=== PATIENT | male | born 1965 | race American Indian/Alaskan Native ===

== ENCOUNTER 2019-04-06 14:13 | Emergency (ER) | payer MEDICAID ==
--- NOTE | 2019-04-06 14:25 | Emergency Department Report ---
Blank Doc - Documentation Documentation: This is a 54-year-old male that presents with right foot pain. also has dizzi ness after injected a unknown medication from a friend. This initial assessment/diagnostic orders/clinical plan/treatment(s) is/are subject to change based on patient's health status, clinical progression and re- assessment by fellow clinical providers in the ED. Further treatment and workup at subsequent clinical providers discretion. Patient/guardians urged not to elope from the ED as their condition may be serious if not clinically assessed and managed. Initial orders include: 1- Patient sent to [facility] for further evaluation and treatment 2- labs/ua 3- xray
--- NOTE | 2019-04-06 15:21 | XRay Report ---
RIGHT FOOT, 3 VIEWS INDICATION: foot pain. COMPARISON: None. IMPRESSION: Dorsal dislocation at the second metatarsophalangeal joint is identified. There is no obv ious associated fracture. Mild hallux valgus deformity and degenerative changes at the first metatars ophalangeal joint are also noted. The remaining bony structures are intact. Surgical changes at the a nkle with posttraumatic degenerative changes are noted. Signer Name: Jagdish Tay Jr, MD Signed: 04/06/2019 3:16 PM Workstation Name: [id number]
[2019-04-06 17:03] LABS: Basophils % (Auto) 0.5 % (0.0-1.8); Eosinophils % (Auto) 0.8 % (0.0-4.3); Hematocrit 41.2 % (35.5-45.6); Hemoglobin 13.8 gm/dl (11.8-15.2); Lymphocytes # (Auto) 1.3 K/mm3 (1.2-5.4); Lymphocytes % (Auto) 19.8 % (13.4-35.0); Mean Corpuscular HGB Conc 34 % (32-34); Mean Corpuscular Volume 87 fl (84-94); Monocytes # (Auto) 0.6 K/mm3 (0.0-0.8); Monocytes % (Auto) 8.7 % (0.0-7.3); Platelet Count 201 K/mm3 (140-440); Red Blood Count 4.72 M/mm3 (3.65-5.03); Red Cell Distribution Width 13.1 % (13.2-15.2)
--- NOTE | 2019-04-06 17:15 | Emergency Department Report ---
ED General Adult HPI - General Chief complaint: Dizziness Stated complaint: RT FOOT INJURY/WEAKNESS Time Seen by Provider: 04/06/19 14:21 Source: patient Mode of arrival: Ambulatory Limitations: No Limitations - History of Present Illness Initial comments: Patient presents to the emergency department with the chief complaint of right ankle and right foot pain. She states was walking and twisted his ankle. Patient also states that someone gave him a pill to take for the pain which has helped relieve it significantly. Patient denies chest pain, shortness breath, or headache. -: Sudden Location: lower extremity Radiation: non-radiation Severity scale (0 -10): 2 Quality: aching Consistency: constant Improves with: rest Worsens with: movement Associated Symptoms: denies other symptoms Treatments Prior to Arrival: none - Related Data Previous Rx's Medication Instructions Recorded Last Taken Type Ibuprofen [Motrin] 800 mg PO Q8HR PRN #30 tablet 04/06/19 Unknown Rx Allergies Allergy/AdvReac Type Severity Reaction Status Date / Time haloperidol [From Haldol] Allergy Hives Verified 04/06/19 14:20 ED Review of Systems ROS: Stated complaint: RT FOOT INJURY/WEAKNESS Other details as noted in HPI Comment: All other systems reviewed and negative Constitutional: denies: chills, fever Eyes: denies: eye pain, eye discharge, vision change ENT: denies: ear pain, throat pain Respiratory: denies: cough, shortness of breath, wheezing Cardiovascular: denies: chest pain, palpitations Endocrine: no symptoms reported Gastrointestinal: denies: abdominal pain, nausea, diarrhea Genitourinary: denies: urgency, dysuria Musculoskeletal: denies: back pain, joint swelling, arthralgia Skin: denies: rash, lesions Neurological: denies: headache, weakness, paresthesias Psychiatric: denies: anxiety, depression Hematological/Lymphatic: denies: easy bleeding, easy bruising ED Past Medical Hx - Past Medical History Previous Medical History?: Yes - Social History Smoking Status: Unknown if ever smoked Substance Use Type: Other - Medications Home Medications: Home Medications Medication Instructions Recorded Confirmed Last Taken Type Ibuprofen [Motrin] 800 mg PO Q8HR PRN #30 tablet 04/06/19 Unknown Rx ED Physical Exam - General Limitations: No Limitations General appearance: alert, in no apparent distress - Head Head exam: Present: atraumatic, normocephalic - Eye Eye exam: Present: normal appearance, PERRL, EOMI - ENT ENT exam: Present: mucous membranes dry - Neck Neck exam: Present: normal inspection - Respiratory Respiratory exam: Present: normal lung sounds bilaterally. Absent: respiratory distress - Cardiovascular Cardiovascular Exam: Present: regular rate, normal rhythm. Absent: systolic murmur, diastolic murmur, rubs, gallop - GI/Abdominal GI/Abdominal exam: Present: soft, normal bowel sounds - Rectal Rectal exam: Present: deferred - Extremities Exam Extremities exam: Present: normal inspection, other (right ankle is tender to palpation along the lateral malleolus; there is tenderness palpation of distal joint of the first great toe left foot) - Back Exam Back exam: Present: normal inspection - Neurological Exam Neurological exam: Present: alert, oriented X3 - Psychiatric Psychiatric exam: Present: normal affect, normal mood - Skin Skin exam: Present: warm, dry, intact, normal color. Absent: rash ED Course Vital Signs 04/06/19 14:24 Temperature 98.2 F Pulse Rate 117 H Respiratory 20 Rate Blood Pressure 119/84 O2 Sat by Pulse 99 Oximetry ED Medical Decision Making - Lab Data Result diagrams: 04/06/19 16:52 04/06/19 16:51 Lab Results 04/06/19 04/06/19 Range/Units 16:51 16:52 WBC 6.5 (4.5-11.0) K/mm3 RBC 4.72 (3.65-5.03) M/mm3 Hgb 13.8 (11.8-15.2) gm/dl Hct 41.2 (35.5-45.6) % MCV 87 (84-94) fl MCH 29 (28-32) pg MCHC 34 (32-34) % RDW 13.1 L (13.2-15.2) % Plt Count 201 (140-440) K/mm3 Lymph % (Auto) 19.8 (13.4-35.0) % [place] % (Auto) 8.7 H (0.0-7.3) % Eos % (Auto) 0.8 (0.0-4.3) % Baso % (Auto) 0.5 (0.0-1.8) % Lymph # 1.3 (1.2-5.4) K/mm3 [place] # 0.6 (0.0-0.8) K/mm3 Eos # 0.0 (0.0-0.4) K/mm3 Baso # 0.0 (0.0-0.1) K/mm3 Seg Neutrophils % 70.2 H (40.0-70.0) % Seg Neutrophils # 4.5 (1.8-7.7) K/mm3 Sodium 138 (137-145) mmol/L Potassium 3.8 (3.6-5.0) mmol/L Chloride 98.0 (98-107) mmol/L Carbon Dioxide 27 (22-30) mmol/L Anion Gap 17 mmol/L BUN 12 (9-20) mg/dL Creatinine 0.9 (0.8-1.5) mg/dL Estimated GFR > 60 ml/min BUN/Creatinine Ratio 13 % Glucose 115 H (75-100) mg/dL Calcium 8.9 (8.4-10.2) mg/dL Total Bilirubin 0.70 (0.1-1.2) mg/dL AST 223 H (5-40) units/L ALT 113 H (7-56) units/L Alkaline Phosphatase 67 (35-129) units/L Total Protein 7.6 (6.3-8.2) g/dL Albumin 4.0 (3.9-5) g/dL Albumin/Globulin Ratio 1.1 % - Medical Decision Making The patient would not allow me to reduce his dislocated second toe of the right foot Critical care attestation.: If time is entered above; I have spent that time in minutes in the direct care of this critically ill patient, excluding procedure time. ED Disposition Clinical Impression: Ankle pain, right, Toe pain, right Disposition: DC- TO HOME OR SELFCARE Is pt being admited?: No Does the pt Need Aspirin: No Condition: Stable Additional Instructions: return if worse Referrals: PRIMARY CARE, [Primary Care Provider] - 3-5 Days [facility] [Staff Physician] - 3-5 Days [facility] [Provider Group] - 3-5 Days [facility] [Provider Group] - 3-5 Days Time of Disposition: 18:09
--- NOTE | 2019-04-06 17:42 | XRay Report ---
RIGHT ANKLE 2 VIEWS INDICATION / CLINICAL INFORMATION: pain. COMPARISON: None available. FINDINGS: Postop change of venous stripping and ORIF distal fibular fracture. Moderately advanced degenerative change in the tibiotalar joint. No acute fracture or other acute abn ormality. IMPRESSION: Advanced degenerative change in the tibiotalar joint. No acute fracture. Signer Name: Abebe Winkler MD Signed: 04/06/2019 5:37 PM Workstation Name: [id number]
[2019-04-06 18:27] LABS: BUN/Creatinine Ratio TNR; Blood Urea Nitrogen TNR mg/dL (9-20); Calcium TNR mg/dL (8.4-10.2)
[2019-04-06 18:28] LABS: Alanine Aminotransferase TNR units/L (7-56); Albumin TNR g/dL (3.9-5); Hemolysis Index TNR
[2019-04-06 18:43] VITALS: BP 111/72
== END 2019-04-06 19:03 | disposition home or self-care (01) ==
LOC: ED 14:13
DX: M25.571 Pain in right ankle and joints of right foot (principal); M79.674 Pain in right toe(s); Z79.899 Other long term (current) drug therapy; Z88.8 Allergy status to other drugs, medicaments and biological substances
CPT/HCPCS: 36415; 80053; 85025; 99283

== ENCOUNTER 2019-04-07 19:22 | Emergency (ER) | payer MEDICAID ==
[2019-04-07 20:10] LABS: Basophils % (Auto) 0.5 % (0.0-1.8); Eosinophils % (Auto) 0.6 % (0.0-4.3); Hematocrit 40.9 % (35.5-45.6); Hemoglobin 13.9 gm/dl (11.8-15.2); Lymphocytes # (Auto) 1.5 K/mm3 (1.2-5.4); Mean Corpuscular HGB Conc 34 % (32-34); Mean Corpuscular Volume 89 fl (84-94); Monocytes # (Auto) 0.8 K/mm3 (0.0-0.8); Monocytes % (Auto) 10.9 % (0.0-7.3); Platelet Count 168 K/mm3 (140-440); Red Blood Count 4.61 M/mm3 (3.65-5.03); Red Cell Distribution Width 12.8 % (13.2-15.2)
--- NOTE | 2019-04-07 20:32 | Emergency Department Report ---
HPI - General Chief Complaint: Psych Time Seen by Provider: 04/07/19 20:06 - HPI HPI: Room 9 The patient is a 54-year-old male presenting with a chief complaint suicidal ideation. Patient states he has felt suicidal and depressed for the past 2-3 days because he lost his dentures and he does not like his appearance. Patient states his plan was to jump off a bridge or to run into a speeding car. Patient denies any active attempt at harming himself. The patient states also several days ago he was "running from some people" and since then he has had pain and paresthesias of the toes of his right foot Location: Mental state, right foot Duration: [See above] Quality: [See above] Severity: [See above] Timing: [See above] Context: [See above] Modifying factors: [See above] Associated signs and symptoms: [see above] ED Past Medical Hx - Past Medical History Previous Medical History?: Yes Hx Psychiatric Treatment: Yes (Depression, Bipolar) - Surgical History Past Surgical History?: Yes Additional Surgical History: Right ankle, abdominal - Family History Family history: no significant - Social History Smoking Status: Current Every Day Smoker (1/3 pack per day) Substance Use Type: Cocaine - Medications Home Medications: Home Medications Medication Instructions Recorded Confirmed Last Taken Type No Known Home Medications [No 04/07/19 04/07/19 Unknown History Reported Home Medications] ED Review of Systems ROS: Stated complaint: SUISIDAL AND DEPRESSION Other details as noted in HPI Constitutional: no symptoms reported Eyes: denies: eye pain ENT: denies: throat pain Respiratory: no symptoms reported Cardiovascular: denies: chest pain Endocrine: no symptoms reported Gastrointestinal: denies: abdominal pain Genitourinary: denies: dysuria Musculoskeletal: arthralgia, myalgia Neurological: paresthesias Psychiatric: visual hallucinations, suicidal thoughts Physical Exam - Physical Exam Vital Signs: Vital Signs 04/07/19 19:34 Temperature 100 F H Pulse Rate 110 H Respiratory 20 Rate Blood Pressure 119/86 O2 Sat by Pulse 95 Oximetry Physical Exam: GENERAL: The patient is well-developed well-nourished male lying on stretcher not appear to be in acute distress. [] HEENT: Normocephalic. Atraumatic. Extraocular motions are intact. Patient has moist mucous membranes. NECK: Supple. Trachea midline CHEST/LUNGS: Clear to auscultation. There is no respiratory distress noted. HEART/CARDIOVASCULAR: Regular. There is no tachycardia. There is no gallop rub or murmur. 2+ DP right foot ABDOMEN: Abdomen is soft, nontender. Patient has normal bowel sounds. There is no abdominal distention. SKIN: There is no rash. There is no edema. There is no diaphoresis. NEURO: The patient is awake, alert, and oriented. The patient is cooperative. The patient has normal speech MUSCULOSKELETAL: There is no evidence of acute injury. ED Course Vital Signs 04/07/19 19:34 Temperature 100 F H Pulse Rate 110 H Respiratory 20 Rate Blood Pressure 119/86 O2 Sat by Pulse 95 Oximetry - Orthopedic Joint Reduction Joint #1 Consent Obtained: verbal consent Time Out Performed: Yes Side: right Joint Reduction Location: toe Analgesia: digital block Local Anesthetic Used: Lidocaine 1% Amount of Anesthetic Used (mls): 10 Technique Used: direct manipulation Post-Reduction Neuro Exam: intact Post-Reduction Vascular Exam: intact Post Reduction X-Ray Obtained: Yes Post Reduction X-Ray Results: reduced Splint Applied: No Patient Tolerated Procedure: well, no complications ED Medical Decision Making - Lab Data Result diagrams: 04/07/19 19:59 04/07/19 19:59 Laboratory Tests 04/07/19 04/07/19 04/07/19 19:59 19:59 19:59 WBC RBC Hgb Hct MCV MCH MCHC RDW Plt Count Lymph % (Auto) [place] % (Auto) Eos % (Auto) Baso % (Auto) Lymph # [place] # Eos # Baso # Seg Neutrophils % Seg Neutrophils # Sodium 135 L Potassium 3.6 Chloride 96.9 L Carbon Dioxide 27 Anion Gap 15 BUN 9 Creatinine 0.9 Estimated GFR > 60 BUN/Creatinine Ratio 10 Glucose 107 H Calcium 9.1 Total Bilirubin Direct Bilirubin Indirect Bilirubin AST ALT Alkaline Phosphatase Total Protein Albumin Albumin/Globulin Ratio Urine Color Urine Turbidity Urine pH Ur Specific [place] Urine Protein Urine Glucose (UA) Urine Ketones Urine Blood Urine Nitrite Urine Bilirubin Urine Urobilinogen Ur Leukocyte Esterase Urine WBC (Auto) Urine RBC (Auto) Urine Mucus Salicylates < 0.3 L Urine Opiates Screen Urine Methadone Screen Acetaminophen < 5.0 L Ur Barbiturates Screen Ur Phencyclidine Scrn Ur Amphetamines Screen U Benzodiazepines Scrn Urine Cocaine Screen U Marijuana (THC) Screen Plasma/Serum Alcohol 04/07/19 04/07/19 04/07/19 19:59 19:59 20:43 WBC 7.0 RBC 4.61 Hgb 13.9 Hct 40.9 MCV 89 MCH 30 MCHC 34 RDW 12.8 L Plt Count 168 Lymph % (Auto) 21.0 [place] % (Auto) 10.9 H Eos % (Auto) 0.6 Baso % (Auto) 0.5 Lymph # 1.5 [place] # 0.8 Eos # 0.0 Baso # 0.0 Seg Neutrophils % 67.0 Seg Neutrophils # 4.7 Sodium Potassium Chloride Carbon Dioxide Anion Gap BUN Creatinine Estimated GFR BUN/Creatinine Ratio Glucose Calcium Total Bilirubin 0.70 Direct Bilirubin 0.2 Indirect Bilirubin 0.5 AST 131 H ALT 86 H Alkaline Phosphatase 60 Total Protein 7.5 Albumin 3.6 L Albumin/Globulin Ratio 0.9 Urine Color Urine Turbidity Urine pH Ur Specific [place] Urine Protein Urine Glucose (UA) Urine Ketones Urine Blood Urine Nitrite Urine Bilirubin Urine Urobilinogen Ur Leukocyte Esterase Urine WBC (Auto) Urine RBC (Auto) Urine Mucus Salicylates Urine Opiates Screen Urine Methadone Screen Acetaminophen Ur Barbiturates Screen Ur Phencyclidine Scrn Ur Amphetamines Screen U Benzodiazepines Scrn Urine Cocaine Screen U Marijuana (THC) Screen Plasma/Serum Alcohol < 0.01 04/07/19 04/07/19 22:18 22:18 WBC RBC Hgb Hct MCV MCH MCHC RDW Plt Count Lymph % (Auto) [place] % (Auto) Eos % (Auto) Baso % (Auto) Lymph # [place] # Eos # Baso # Seg Neutrophils % Seg Neutrophils # Sodium Potassium Chloride Carbon Dioxide Anion Gap BUN Creatinine Estimated GFR BUN/Creatinine Ratio Glucose Calcium Total Bilirubin Direct Bilirubin Indirect Bilirubin AST ALT Alkaline Phosphatase Total Protein Albumin Albumin/Globulin Ratio Urine Color [place] Urine Turbidity Cloudy Urine pH 6.0 Ur Specific [place] 1.030 Urine Protein 100 mg/dl Urine Glucose (UA) Neg Urine Ketones Neg Urine Blood Mod Urine Nitrite Neg Urine Bilirubin Neg Urine Urobilinogen 4.0 Ur Leukocyte Esterase Neg Urine WBC (Auto) < 1.0 Urine RBC (Auto) 12.0 Urine Mucus 3+ Salicylates Urine Opiates Screen Presumptive negative Urine Methadone Screen Presumptive negative Acetaminophen Ur Barbiturates Screen Presumptive negative Ur Phencyclidine Scrn Presumptive negative Ur Amphetamines Screen Presumptive negative U Benzodiazepines Scrn Presumptive negative Urine Cocaine Screen Presumptive positive U Marijuana (THC) Screen Presumptive negative Plasma/Serum Alcohol - Differential Diagnosis suicidal ideation, foot contusion Critical care attestation.: If time is entered above; I have spent that time in minutes in the direct care of this critically ill patient, excluding procedure time. ED Disposition Clinical Impression: Suicidal ideation, Toe dislocation Disposition: DC/TX-65 PSY HOSP/PSY UNIT Is pt being admited?: No Does the pt Need Aspirin: No Condition: Serious Time of Disposition: 23:38 (awaiting acceptance)
[2019-04-07] MEDS ORDERED: XYLOCAINE 1% 20 mL ONE (20:46)
[2019-04-07 21:01] LABS: BUN/Creatinine Ratio 10; Blood Urea Nitrogen 9 mg/dL (9-20); Calcium 9.1 mg/dL (8.4-10.2); Hemolysis Index 18
[2019-04-07 21:18] LABS: Albumin 3.6 g/dL (3.9-5); Bilirubin,Direct 0.2 mg/dL (0-0.2)
--- NOTE | 2019-04-07 22:47 | XRay Report ---
Right foot, single view INDICATION: Dislocation, postreduction COMPARISON: 04/06/2019 FINDINGS: The dislocation at the second metatarsal phalangeal joint has been successfully reduced toe now appearing in anatomical alignment. Otherwise no interval change. There is no definite fractures seen. Signer Name: Michael Puente MD Signed: 04/07/2019 10:42 PM Workstation Name: [id number]
[2019-04-07 23:08] LABS: Bilirubin,Urine NEG (Negative); Blood,Urine MOD (Negative); Color,Urine Amber (Yellow); Mucus,Urine 3+ /HPF
[2019-04-07 23:09] LABS: WBC,Urine < 1.0 /HPF (0.0-6.0)
[2019-04-07 23:16] LABS: Amphetamine Screen,Urine PRESUMPTIVE NEGATIVE; Benzodiazepines Screen,Urine PRESUMPTIVE NEGATIVE; Cannabinoid Screen,Urine PRESUMPTIVE NEGATIVE; Methadone Screen,Urine PRESUMPTIVE NEGATIVE; Opiate Screen,Urine PRESUMPTIVE NEGATIVE
[2019-04-07 23:29] LABS: Cocaine Screen,Urine PRESUMPTIVE POSITIVE
[2019-04-08] MEDS ORDERED: ATIVAN ONE (02:03)
[2019-04-08] MEDS ORDERED: ATIVAN PO ONE (02:08)
[2019-04-08] MEDS ORDERED: NACL 0.9% 1000 ML 1,000 ML IV ONE (14:17)
--- NOTE | 2019-04-08 14:41 | Consultation ---
History of Present Illness - Reason for Consult Consult date: 04/08/19 Reason for consult: Mental Health Evaluation Requesting physician: LA CAMPOVERDE - Chief Complaint Chief complaint: "I need to get my life together" - History of Present Psychiatric Illness 54 y.o. AA male who presented to the ER for an foot injury and SI's. Today the patient was calm, but vague during the assessment. He acknowledged being suicidal yesterday because he need to get his his life together. He was asked several times about what he meant by getting his life together, his replies were vague. He did state that he has a hx of depression. He rate his depression 5/10, with 10 being the worse. He denies HI's and AVH's. He would not confirm or deny SI's. He acknowledged erratic sleep and a poor appetite. He denies recreational drug use, but was positive for cocaine. He denies alcohol consumption (etoh). Medications and Allergies Allergies Allergy/AdvReac Type Severity Reaction Status Date / Time haloperidol [From Haldol] Allergy Hives Verified 04/06/19 14:20 Home Medications Medication Instructions Recorded Confirmed Last Taken Type No Known Home Medications [No 04/07/19 04/07/19 Unknown History Reported Home Medications] Active Meds: Active Medications Sodium Chloride (Nacl 0.9% 1000 Ml) 1,000 mls @ 999 mls/hr IV BOLUS ONE Stop: 04/08/19 15:17 Mirtazapine (Remeron) 15 mg PO HS CLEOPATRA Past psychiatric history - Past Medical History Past Medical History: No medical history, other Past Surgical History: No surgical history - past Psychiatric treatment and history psychiatric treatment history: Hx of depression. Denies a fam psy hx. - Social History Social history: other (Homeless) Mental Status Exam - Vital signs Last Vital Signs Temp 98.3 F 04/08/19 13:00 Pulse 89 04/08/19 13:00 Resp 18 04/08/19 13:00 BP 93/60 04/08/19 13:00 Pulse Ox 98 04/08/19 13:00 - Exam Narrative exam: MSE: Appearance: calm, cooperative Behavior: regular eye contact Speech: regular rate and tone Mood: guarded Affect: flat Thought Process: somewhat circumstantial Thought Content: denies HI's and AVH's Motor Activity: sitting up in bed Cognition: A/O x3 Insight: vague Judgment: poor Results Result Diagrams: 04/07/19 19:59 04/07/19 19:59 Abnormal lab results 04/07/19 04/07/19 04/07/19 Range/Units 19:59 19:59 19:59 RDW (13.2-15.2) % [place] % (Auto) (0.0-7.3) % Sodium 135 L (137-145) mmol/L Chloride 96.9 L (98-107) mmol/L Glucose 107 H (75-100) mg/dL AST (5-40) units/L ALT (7-56) units/L Albumin (3.9-5) g/dL Salicylates < 0.3 L (2.8-20.0) mg/dL Acetaminophen < 5.0 L (10.0-30.0) ug/mL 04/07/19 04/07/19 Range/Units 19:59 20:43 RDW 12.8 L (13.2-15.2) % [place] % (Auto) 10.9 H (0.0-7.3) % Sodium (137-145) mmol/L Chloride (98-107) mmol/L Glucose (75-100) mg/dL AST 131 H (5-40) units/L ALT 86 H (7-56) units/L Albumin 3.6 L (3.9-5) g/dL Salicylates (2.8-20.0) mg/dL Acetaminophen (10.0-30.0) ug/mL All other labs normal. Assessment and Plan Assessment and plan: Impression: MDD. Substance Use DO (Cocaine). Today the patient was calm, but vague during the assessment. DDx: Substance Induced Mood DO Recommendation/Plan: Continue 1013 and start Remeron 15 mg PO HS for depression. Discussed possible suicidality/medication induced ralph with the patient reference Remeron, he verbalized understanding. Dispo: The patient was referred to inpatient psy services. Staffed with Dr Holly Aleman.
[2019-04-08 20:00] VITALS: BP 102/77
[2019-04-08] MEDS ORDERED: REMERON PO SCH (22:00)
== END 2019-04-08 20:00 ==
LOC: EEVIPCON 19:22 → ED 19:22
DX: S93.124A Dislocation of metatarsophalangeal joint of right lesser toe(s), initial encounter (principal); R45.851 Suicidal ideations; F32.9 Major depressive disorder, single episode, unspecified; F31.9 Bipolar disorder, unspecified; F17.200 Nicotine dependence, unspecified, uncomplicated; F14.10 Cocaine abuse, uncomplicated; Z87.891 Personal history of nicotine dependence; X58.XXXA Exposure to other specified factors, initial encounter; Y93.89 Activity, other specified; Y92.89 Other specified places as the place of occurrence of the external cause; Y99.8 Other external cause status
CPT/HCPCS: 28630; 36415; 73620; 80048; 80076; 80307; 81001; 85025; 99285; J7030; 80320; G0480

== ENCOUNTER 2019-04-16 15:01 | Emergency (ER) | payer MEDICAID ==
[2019-04-16 16:05] LABS: Basophils # (Auto) 0.1 K/mm3 (0.0-0.1); Eosinophils # (Auto) 0.1 K/mm3 (0.0-0.4); Eosinophils % (Auto) 2.1 % (0.0-4.3); Hematocrit 39.4 % (35.5-45.6); Hemoglobin 13.5 gm/dl (11.8-15.2); Lymphocytes # (Auto) 1.9 K/mm3 (1.2-5.4); Lymphocytes % (Auto) 32.9 % (13.4-35.0); Mean Corpuscular HGB Conc 34 % (32-34); Mean Corpuscular Volume 89 fl (84-94); Monocytes # (Auto) 0.9 K/mm3 (0.0-0.8); Monocytes % (Auto) 15.1 % (0.0-7.3); Platelet Count 267 K/mm3 (140-440); Red Blood Count 4.45 M/mm3 (3.65-5.03); Red Cell Distribution Width 13.4 % (13.2-15.2)
[2019-04-16 16:24] LABS: BUN/Creatinine Ratio 23; Blood Urea Nitrogen 18 mg/dL (9-20); Calcium 9.4 mg/dL (8.4-10.2); Hemolysis Index 5
[2019-04-16 16:39] LABS: Bilirubin,Urine NEG (Negative); Blood,Urine NEG (Negative); Color,Urine Yellow (Yellow); Mucus,Urine FEW /HPF; Urobilinogen,Urine < 2.0 mg/dL (<2.0)
[2019-04-16 16:51] LABS: Amphetamine Screen,Urine PRESUMPTIVE NEGATIVE; Benzodiazepines Screen,Urine PRESUMPTIVE NEGATIVE; Cannabinoid Screen,Urine PRESUMPTIVE NEGATIVE; Methadone Screen,Urine PRESUMPTIVE NEGATIVE; Opiate Screen,Urine PRESUMPTIVE NEGATIVE
[2019-04-16 16:59] LABS: Bacteria,Urine 1+ /HPF (Negative)
[2019-04-16 17:23] LABS: Cocaine Screen,Urine PRESUMPTIVE POSITIVE
[2019-04-16] MEDS ORDERED: NACL 0.9% 1000 ML 1,000 ML IV ONE (19:06)
--- NOTE | 2019-04-16 21:21 | Emergency Department Report ---
ED Psych HPI - General Chief Complaint: Psych Stated Complaint: DEPRESSION/SI Time Seen by Provider: 04/16/19 16:33 Source: patient Mode of arrival: Ambulatory - History of Present Illness Initial Comments: 54-year-old male with a past medical history of bipolar disorder and depression presents to the hospital complaining of suicidal or homicidal ideation. Patient's hearing voices to harm himself. He also used cocaine 2 days ago denies other substance abuse. Patient states she's been noncompliant with Remeron, Cogentin, and Abilify 1 week because he is too depressed to take the medications. Patient also states he takes Ativan as needed and thinks he needs a dose due to his racing thoughts. Upon previous medical review patient was here on April 06 for right ankle pain and discharge. He then returned on April 07 with suicidal ideation and was transferred to [facility] on 04/08 for psychiatric treatment. - Related Data Home Medications Medication Instructions Recorded Confirmed Last Taken No Known Home Medications [No 04/07/19 04/07/19 Unknown Reported Home Medications] Allergies Allergy/AdvReac Type Severity Reaction Status Date / Time haloperidol [From Haldol] Allergy Hives Verified 04/06/19 14:20 ED Review of Systems ROS: Stated complaint: DEPRESSION/SI Other details as noted in HPI Comment: All other systems reviewed and negative ED Past Medical Hx - Past Medical History Previous Medical History?: Yes Hx Psychiatric Treatment: Yes (Depression, Bipolar) - Surgical History Past Surgical History?: Yes Additional Surgical History: Right ankle, abdominal - Social History Smoking Status: Never Smoker - Medications Home Medications: Home Medications Medication Instructions Recorded Confirmed Last Taken Type No Known Home Medications [No 04/07/19 04/07/19 Unknown History Reported Home Medications] ED Physical Exam - General Limitations: No Limitations - Other Other exam information: Gen.: No acute distress Head: Atraumatic Eyes: Normal appearance ENT: Moist mucous membranes Neck: Normal appearance, no posterior midline tenderness, no meningismus Chest: Clear to auscultation bilaterally Cardiovascular: Regular rate and rhythm Abdomen: Normal appearance, soft, nontender, no rebound or guarding, normal bowel sounds Back: Normal appearance, nontender Extremity: Full range of motion, normal appearance Neuro: Alert, clear speech, no focal motor or sensory deficit Psychiatric: Appropriate Skin: No rash ED Course Vital Signs 04/16/19 04/16/1919 15:51 19:30 22:00 Temperature 98.7 F 98.2 F Pulse Rate 80 84 82 Respiratory 18 19 19 Rate Blood Pressure 106/71 108/75 Blood Pressure 96/61 [Left] O2 Sat by Pulse 100 100 99 Oximetry ED Medical Decision Making - Lab Data Result diagrams: 04/16/19 15:50 04/16/19 15:50 Lab Results 04/16/19 04/16/19 04/16/19 Range/Units 15:50 15:50 15:50 WBC (4.5-11.0) K/mm3 RBC (3.65-5.03) M/mm3 Hgb (11.8-15.2) gm/dl Hct (35.5-45.6) % MCV (84-94) fl MCH (28-32) pg MCHC (32-34) % RDW (13.2-15.2) % Plt Count (140-440) K/mm3 Lymph % (Auto) (13.4-35.0) % [place] % (Auto) (0.0-7.3) % Eos % (Auto) (0.0-4.3) % Baso % (Auto) (0.0-1.8) % Lymph # (1.2-5.4) K/mm3 [place] # (0.0-0.8) K/mm3 Eos # (0.0-0.4) K/mm3 Baso # (0.0-0.1) K/mm3 Seg Neutrophils % (40.0-70.0) % Seg Neutrophils # (1.8-7.7) K/mm3 Sodium 138 (137-145) mmol/L Potassium 3.8 (3.6-5.0) mmol/L Chloride 98.1 (98-107) mmol/L Carbon Dioxide 27 (22-30) mmol/L Anion Gap 17 mmol/L BUN 18 (9-20) mg/dL Creatinine 0.8 (0.8-1.5) mg/dL Estimated GFR > 60 ml/min BUN/Creatinine Ratio 23 % Glucose 83 (75-100) mg/dL Calcium 9.4 (8.4-10.2) mg/dL Total Creatine Kinase (55-170) units/L Urine Color (Yellow) Urine Turbidity (Clear) Urine pH (5.0-7.0) Ur Specific [place] (1.003-1.030) Urine Protein (Negative) mg/dL Urine Glucose (UA) (Negative) mg/dL Urine Ketones (Negative) mg/dL Urine Blood (Negative) Urine Nitrite (Negative) Urine Bilirubin (Negative) Urine Urobilinogen (<2.0) mg/dL Ur Leukocyte Esterase (Negative) Urine WBC (Auto) (0.0-6.0) /HPF Urine RBC (Auto) (0.0-6.0) /HPF Urine Bacteria (Auto) (Negative) /HPF Urine Mucus /HPF Salicylates < 0.3 L (2.8-20.0) mg/dL Urine Opiates Screen Urine Methadone Screen Acetaminophen < 5.0 L (10.0-30.0) ug/mL Ur Barbiturates Screen Ur Phencyclidine Scrn Ur Amphetamines Screen U Benzodiazepines Scrn Urine Cocaine Screen U Marijuana (THC) Screen Drugs of Abuse Note Plasma/Serum Alcohol (0-0.07) % 04/16/19 04/16/19 04/16/19 Range/Units 15:50 15:50 15:51 WBC 5.7 (4.5-11.0) K/mm3 RBC 4.45 (3.65-5.03) M/mm3 Hgb 13.5 (11.8-15.2) gm/dl Hct 39.4 (35.5-45.6) % MCV 89 (84-94) fl MCH 30 (28-32) pg MCHC 34 (32-34) % RDW 13.4 (13.2-15.2) % Plt Count 267 (140-440) K/mm3 Lymph % (Auto) 32.9 (13.4-35.0) % [place] % (Auto) 15.1 H (0.0-7.3) % Eos % (Auto) 2.1 (0.0-4.3) % Baso % (Auto) 1.0 (0.0-1.8) % Lymph # 1.9 (1.2-5.4) K/mm3 [place] # 0.9 H (0.0-0.8) K/mm3 Eos # 0.1 (0.0-0.4) K/mm3 Baso # 0.1 (0.0-0.1) K/mm3 Seg Neutrophils % 48.9 (40.0-70.0) % Seg Neutrophils # 2.8 (1.8-7.7) K/mm3 Sodium (137-145) mmol/L Potassium (3.6-5.0) mmol/L Chloride (98-107) mmol/L Carbon Dioxide (22-30) mmol/L Anion Gap mmol/L BUN (9-20) mg/dL Creatinine (0.8-1.5) mg/dL Estimated GFR ml/min BUN/Creatinine Ratio % Glucose (75-100) mg/dL Calcium (8.4-10.2) mg/dL Total Creatine Kinase (55-170) units/L Urine Color Yellow (Yellow) Urine Turbidity Slightly-cloudy (Clear) Urine pH 6.0 (5.0-7.0) Ur Specific [place] 1.024 (1.003-1.030) Urine Protein 30 mg/dl (Negative) mg/dL Urine Glucose (UA) Neg (Negative) mg/dL Urine Ketones Neg (Negative) mg/dL Urine Blood Neg (Negative) Urine Nitrite Neg (Negative) Urine Bilirubin Neg (Negative) Urine Urobilinogen < 2.0 (<2.0) mg/dL Ur Leukocyte Esterase Neg (Negative) Urine WBC (Auto) 1.0 (0.0-6.0) /HPF Urine RBC (Auto) 5.0 (0.0-6.0) /HPF Urine Bacteria (Auto) 1+ (Negative) /HPF Urine Mucus Few /HPF Salicylates (2.8-20.0) mg/dL Urine Opiates Screen Urine Methadone Screen Acetaminophen (10.0-30.0) ug/mL Ur Barbiturates Screen Ur Phencyclidine Scrn Ur Amphetamines Screen U Benzodiazepines Scrn Urine Cocaine Screen U Marijuana (THC) Screen Drugs of Abuse Note Plasma/Serum Alcohol < 0.01 (0-0.07) % 04/16/19 04/16/19 Range/Units Unknown Unknown WBC (4.5-11.0) K/mm3 RBC (3.65-5.03) M/mm3 Hgb (11.8-15.2) gm/dl Hct (35.5-45.6) % MCV (84-94) fl MCH (28-32) pg MCHC (32-34) % RDW (13.2-15.2) % Plt Count (140-440) K/mm3 Lymph % (Auto) (13.4-35.0) % [place] % (Auto) (0.0-7.3) % Eos % (Auto) (0.0-4.3) % Baso % (Auto) (0.0-1.8) % Lymph # (1.2-5.4) K/mm3 [place] # (0.0-0.8) K/mm3 Eos # (0.0-0.4) K/mm3 Baso # (0.0-0.1) K/mm3 Seg Neutrophils % (40.0-70.0) % Seg Neutrophils # (1.8-7.7) K/mm3 Sodium (137-145) mmol/L Potassium (3.6-5.0) mmol/L Chloride (98-107) mmol/L Carbon Dioxide (22-30) mmol/L Anion Gap mmol/L BUN (9-20) mg/dL Creatinine (0.8-1.5) mg/dL Estimated GFR ml/min BUN/Creatinine Ratio % Glucose (75-100) mg/dL Calcium (8.4-10.2) mg/dL Total Creatine Kinase 388 H (55-170) units/L Urine Color (Yellow) Urine Turbidity (Clear) Urine pH (5.0-7.0) Ur Specific [place] (1.003-1.030) Urine Protein (Negative) mg/dL Urine Glucose (UA) (Negative) mg/dL Urine Ketones (Negative) mg/dL Urine Blood (Negative) Urine Nitrite (Negative) Urine Bilirubin (Negative) Urine Urobilinogen (<2.0) mg/dL Ur Leukocyte Esterase (Negative) Urine WBC (Auto) (0.0-6.0) /HPF Urine RBC (Auto) (0.0-6.0) /HPF Urine Bacteria (Auto) (Negative) /HPF Urine Mucus /HPF Salicylates (2.8-20.0) mg/dL Urine Opiates Screen Presumptive negative Urine Methadone Screen Presumptive negative Acetaminophen (10.0-30.0) ug/mL Ur Barbiturates Screen Presumptive positive Ur Phencyclidine Scrn Presumptive negative Ur Amphetamines Screen Presumptive negative U Benzodiazepines Scrn Presumptive negative Urine Cocaine Screen Presumptive positive U Marijuana (THC) Screen Presumptive negative Drugs of Abuse Note Disclamer Plasma/Serum Alcohol (0-0.07) % - Medical Decision Making Patient was recently here and transferred to a psychiatric hospital with suicidal ideation and is now back in the hospital again with noncompliance with his medication and also suicidal homicidal ideation with psychosis. Patient is medically cleared. UDS positive for cocaine. Patient pending mental health evaluation for psychiatric disposition. Patient's BP improving with a liter normal saline. Upon chart review patient was treated with Remeron 15 mg daily at bedtime. This will be continued until additional meds are added by psychiatric team. - Differential Diagnosis suicidal, HI, depression, psychosis, medication noncompliance Critical Care Time: No Critical care attestation.: If time is entered above; I have spent that time in minutes in the direct care of this critically ill patient, excluding procedure time. ED Disposition Clinical Impression: Suicidal ideation, Noncompliance with medication regimen, Depressed, Psychosis, Cocaine abuse Disposition: DC/TX-65 PSY HOSP/PSY UNIT Is pt being admited?: No Condition: Stable Time of Disposition: 01:09 (awaiting psych eval)
[2019-04-16] MEDS: REMERON PO SCH (22:55)
--- NOTE | 2019-04-17 10:54 | Consultation ---
History of Present Illness - Reason for Consult Consult date: 04/17/19 Reason for consult: Mental Health Evaluation Requesting physician: SERENE PERALTA - Chief Complaint Chief complaint: "i am not suicidal" - History of Present Psychiatric Illness 54-year-old AA male who presented to the ER for depression and SI's. This patient is known to me. Today the patient was calm and cooperative during the assessment. He stated that he wasn't suicidal when assessed yesterday by the ER staff. He stated that he is in need of halfway and resources he can use for his substance abuse. He stated that he mentioned being suicidal to get help "quicker." He stated that he plan to follow up with outpatient psy/rehab services when discharged. He denies SI/HI's, AVH's, and depression. He denies erratic sleep and a poor appetite. He denies alcohol consumption (etoh). I was informed that the patient became agitated prior to his discharged. He endorsed SI's to staff. He also endorsed SI's to me the provider once he was seen again. He would not confirm or deny a suicide plan when asked. The patient was placed on a 1013 and will be reassessed in the AM. Medications and Allergies Allergies Allergy/AdvReac Type Severity Reaction Status Date / Time haloperidol [From Haldol] Allergy Hives Verified 04/06/19 14:20 Home Medications Medication Instructions Recorded Confirmed Last Taken Type No Known Home Medications [No 04/07/19 04/07/19 Unknown History Reported Home Medications] Active Meds: Active Medications Mirtazapine (Remeron) 15 mg PO QHS CLEOPATRA Last Admin: 04/16/19 22:55 Dose: 15 mg Documented by: Past psychiatric history - Past Medical History Past Medical History: other (Foot injury) Past Surgical History: No surgical history - past Psychiatric treatment and history psychiatric treatment history: inpatient psy setting. Denies a fam psy hx. - Social History Social history: other (Homeless) Mental Status Exam - Vital signs Last Vital Signs Temp 98.7 F 04/17/19 08:00 Pulse 80 04/17/19 08:00 Resp 15 04/17/19 08:00 BP 106/77 04/17/19 08:00 Pulse Ox 98 04/17/19 08:00 - Exam Narrative exam: MSE: Appearance: calm, cooperative Behavior: regular eye contact Speech: regular rate and tone Mood: "well" Affect: congruent to mood Thought Process: linear Thought Content: denies SI/HI's and AVH's Motor Activity: laying in bed Cognition: A/O x3 Insight: appropriate Judgment: appropriate Results Result Diagrams: 04/16/19 15:50 04/16/19 15:50 Abnormal lab results 04/16/19 04/16/19 04/16/19 Range/Units 15:50 15:50 15:50 [place] % (Auto) 15.1 H (0.0-7.3) % [place] # 0.9 H (0.0-0.8) K/mm3 Total Creatine Kinase (55-170) units/L Salicylates < 0.3 L (2.8-20.0) mg/dL Acetaminophen < 5.0 L (10.0-30.0) ug/mL 04/16/19 Range/Units Unknown [place] % (Auto) (0.0-7.3) % [place] # (0.0-0.8) K/mm3 Total Creatine Kinase 388 H (55-170) units/L Salicylates (2.8-20.0) mg/dL Acetaminophen (10.0-30.0) ug/mL All other labs normal. Assessment and Plan Assessment and plan: Impression: Hx of Depression. Substance Use DO (cocaine). Today the patient was calm and cooperative during the assessment. Recommendation/Plan: Continue 1013 and Remeron 15 mg PO HS for depression. Discussed possible suicidality/medication induced ralph with the patient, he verbalized understanding. Dispo: The patient was referred to inpatient psy services. Staffed with Dr Holly Aleman.
[2019-04-18] MEDS: REMERON PO SCH ×2 (01:52→22:07)
--- NOTE | 2019-04-18 10:22 | Progress Note ---
Subjective - Reason for Consult Consult date: 04/18/19 Reason for consult: Psychiatry Follow-up - Chief Complaint Chief complaint: "i need help" 54-year-old AA male who presented to the ER for depression and SI's. This patient is known to me. Today the patient was calm during the assessment. He is adamant that he need help and endorsed SI's without a plan. He could not elaborate about what he need help with when asked. He was explained the referral process to inpatient psy services, he verbalized understanding. He denies HI's and AVH's. He denies any side effects from his medication. Mental Status Exam - Vital signs Last Vital Signs Temp 98.4 F 04/18/19 07:00 Pulse 62 04/18/19 07:00 Resp 18 04/18/19 07:00 BP 111/74 04/18/19 07:00 Pulse Ox 96 04/18/19 07:00 - Exam Narrative exam: MSE: Appearance: calm Behavior: regular eye contact Speech: regular rate and tone Mood: "okay" Affect: congruent to mood Thought Process: circumstantial Thought Content: denies HI's and AVH's Motor Activity: laying in bed Cognition: A/O x3 Insight: fair Judgment: variable Assessment and Plan Impression: Hx of Depression. Substance Use DO (cocaine). Today the patient was calm during the assessment. Possible secondary gain by the patient. Recommendation/Plan: Continue 1013 and Remeron 15 mg PO HS for depression. Discussed possible suicidality/medication induced ralph with the patient, he verbalized understanding. Dispo: The patient was referred to inpatient psy services. Staffed with Dr Holly Aleman.
--- NOTE | 2019-04-19 09:35 | Progress Note ---
Subjective - Reason for Consult Consult date: 04/19/19 Reason for consult: Psychiatry Follow-up - Chief Complaint Chief complaint: "I am okay" 54-year-old AA male who presented to the ER for depression and SI's. This patient is known to me. Today the patient was calm during the assessment. He stated that his SI's are "decreasing/" He stated that he want help and will seek help once discharged. He stated that he has "hope." He denies SI/HI's and AVH's. He denies any side effects from his medication. Mental Status Exam - Vital signs Last Vital Signs Temp 98.1 F 04/18/19 23:15 Pulse 88 04/18/19 23:15 Resp 18 04/18/19 23:15 BP 114/72 04/18/19 23:15 Pulse Ox 98 04/18/19 23:15 - Exam Narrative exam: MSE: Appearance: calm Behavior: regular eye contact Speech: regular rate and tone Mood: "okay" Affect: congruent to mood Thought Process: circumstantial Thought Content: denies SI/HI's and AVH's Motor Activity: laying in bed Cognition: A/O x3 Insight: fair Judgment: variable to fair Assessment and Plan Impression: Hx of Depression. Substance Use DO (cocaine). Today the patient was calm during the assessment. Possible secondary gain by the patient. Recommendation/Plan: Reevaluate the patient's 1013 in 24 hours. Continue Remeron 15 mg PO HS for depression. Discussed possible suicidality/medication induced ralph with the patient, he verbalized understanding. Dispo: If the patient's 1013 is rescinded in 24 hours, he can follow up with [facility] for outpatient psy/rehab services. Will staff with Dr Holly Aleman.
[2019-04-19 19:59] VITALS: BP 105/71
[2019-04-19] MEDS: REMERON PO SCH (22:00)
== END 2019-04-20 02:11 ==
LOC: EEVIPCON 15:01 → ED 15:01
DX: F31.9 Bipolar disorder, unspecified (principal); F12.10 Cannabis abuse, uncomplicated; Z88.8 Allergy status to other drugs, medicaments and biological substances
CPT/HCPCS: 36415; 80048; 80307; 81001; 82550; 85025; 99285; J7030; 80320; G0480

== ENCOUNTER 2019-11-14 20:02 | Emergency (ER) | payer MEDICAID ==
[2019-11-14 20:40] LABS: Basophils # (Auto) 0.1 K/mm3 (0.0-0.1); Basophils % (Auto) 0.8 % (0.0-1.8); Eosinophils # (Auto) 0.1 K/mm3 (0.0-0.4); Eosinophils % (Auto) 2.2 % (0.0-4.3); Hematocrit 42.3 % (35.5-45.6); Hemoglobin 14.4 gm/dl (11.8-15.2); Lymphocytes # (Auto) 2.4 K/mm3 (1.2-5.4); Lymphocytes % (Auto) 37.8 % (13.4-35.0); Mean Corpuscular HGB Conc 34 % (32-34); Mean Corpuscular Volume 88 fl (84-94); Monocytes # (Auto) 0.6 K/mm3 (0.0-0.8); Monocytes % (Auto) 9.5 % (0.0-7.3); Platelet Count 264 K/mm3 (140-440); Red Blood Count 4.81 M/mm3 (3.65-5.03); Red Cell Distribution Width 13.3 % (13.2-15.2)
[2019-11-14 21:01] LABS: BUN/Creatinine Ratio 12; Blood Urea Nitrogen 12 mg/dL (9-20); Calcium 9.7 mg/dL (8.4-10.2); Hemolysis Index 8
[2019-11-14 21:15] LABS: Bilirubin,Urine NEG (Negative); Blood,Urine NEG (Negative); Color,Urine Yellow (Yellow); Mucus,Urine FEW /HPF; Protein,Urine <15 mg/dL mg/dL (Negative); Urobilinogen,Urine < 2.0 mg/dL (<2.0)
[2019-11-14 21:21] LABS: Amphetamine Screen,Urine PRESUMPTIVE NEGATIVE; Benzodiazepines Screen,Urine PRESUMPTIVE NEGATIVE; Cannabinoid Screen,Urine PRESUMPTIVE NEGATIVE; Cocaine Screen,Urine PRESUMPTIVE NEGATIVE; Methadone Screen,Urine PRESUMPTIVE NEGATIVE; Opiate Screen,Urine PRESUMPTIVE NEGATIVE
--- NOTE | 2019-11-14 22:24 | Emergency Department Report ---
HPI <HILARIAROSE MARIE - Last Filed: 11/15/19 10:43> - HPI HPI: 54-year-old -[place] male presents to the emergency department with complaint of a few days of depression, suicidal and homicidal ideations. The patient has a history of bipolar disorder and schizophrenia and has not been on his medications for the past 3 months. He denies any hallucinations. Patient says that he is feeling depressed and homicidal because "somebody took something from me", along with some other personal issues. There are 2 particular people that he is feeling homicidal towards. He says that he has the plan to cut his wrist and has done so in the past, or "I would jump off a bridge." He denies any recent illicit drug or alcohol use/abuse. Secondarily, the patient complains of some chronic left foot pain. He denies any known trauma. He has not taken anything for his symptoms prior to presentation. <KEYSHAWN MOREIRA Holly - Last Filed: 11/15/19 16:09> - General Chief Complaint: Psych Time Seen by Provider: 11/14/19 22:09 ED Past Medical Hx <HILARIAROSE MARIE - Last Filed: 11/15/19 10:43> - Past Medical History Previous Medical History?: Yes Hx Psychiatric Treatment: Yes (Depression, Bipolar,substance abuse) - Surgical History Additional Surgical History: Right ankle, abdominal - Social History Smoking Status: Never Smoker Substance Use Type: None <KEYSHAWN MOREIRA Holly - Last Filed: 11/15/19 16:09> - Medications Home Medications: Home Medications Medication Instructions Recorded Confirmed Last Taken Type ARIPiprazole [Abilify] 10 mg PO DAILY 11/14/19 11/14/19 Unknown History Benztropine [Cogentin] 2 mg PO BID 11/14/19 11/14/19 Unknown History Mirtazapine [Remeron 15mg TAB] 15 mg PO DAILY 11/14/19 11/14/19 Unknown History ED Review of Systems ROS: Stated complaint: BOTTOM LEFT FEET PAIN/DEPRESSION Other details as noted in HPI <HILARIAROSE MARIE - Last Filed: 11/15/19 10:43> ROS: Stated complaint: BOTTOM LEFT FEET PAIN/DEPRESSION Other details as noted in HPI Comment: All other systems reviewed and negative Constitutional: denies: chills, fever Eyes: denies: eye pain, vision change ENT: denies: ear pain, throat pain Respiratory: denies: cough, shortness of breath Cardiovascular: denies: chest pain, palpitations Gastrointestinal: denies: abdominal pain, vomiting Genitourinary: denies: dysuria, discharge Musculoskeletal: arthralgia. denies: joint swelling Skin: denies: rash, lesions Neurological: denies: headache, weakness Psychiatric: anxiety, depression, homicidal thoughts, suicidal thoughts. denies: auditory hallucinations, visual hallucinations <KEYSHAWN MOREIRA - Last Filed: 11/15/19 16:09> Physical Exam - Physical Exam Vital Signs: Vital Signs 11/14/19 11/14/19 11/15/19 20:19 22:37 02:05 Temperature 98.1 F 97.6 F 97.4 F L Pulse Rate 93 H 91 H 83 Respiratory 18 18 18 Rate Blood Pressure 115/84 Blood Pressure 104/62 103/75 [Left] O2 Sat by Pulse 97 95 97 Oximetry 11/15/19 08:17 Temperature 97.9 F Pulse Rate 89 Respiratory 18 Rate Blood Pressure Blood Pressure 119/89 [Left] O2 Sat by Pulse 97 Oximetry <ROSE MARIE MANRIQUE - Last Filed: 11/15/19 10:43> - Physical Exam Vital Signs: Vital Signs 11/14/19 20:19 Temperature 98.1 F Pulse Rate 93 H Respiratory 18 Rate Blood Pressure 115/84 O2 Sat by Pulse 97 Oximetry Physical Exam: GENERAL: The patient is well-developed well-nourished. HENT: Normocephalic. Atraumatic. Patient has moist mucous membranes. EYES: Extraocular motions are intact. NECK: Supple. Trachea is midline. CHEST/LUNGS: Clear to auscultation. There is no respiratory distress noted. HEART/CARDIOVASCULAR: Regular. There is no tachycardia. ABDOMEN: Abdomen is soft, nontender. Patient has normal bowel sounds. SKIN: Skin is warm and dry. Patient has a callus to the distal plantar left foot. NEURO: The patient is awake, alert, and oriented. The patient is cooperative. The patient has no focal neurologic deficits. Normal speech. MUSCULOSKELETAL: There is some mild tenderness to palpation to the distal plantar left foot. There is no limitation range of motion. <KEYSHAWN MOREIRA - Last Filed: 11/15/19 16:09> ED Course Vital Signs 04/11/14/19 11/15/19 20:19 22:37 02:05 Temperature 98.1 F 97.6 F 97.4 F L Pulse Rate 93 H 91 H 83 Respiratory 18 18 18 Rate Blood Pressure 115/84 Blood Pressure 104/62 103/75 [Left] O2 Sat by Pulse 97 95 97 Oximetry 11/15/19 08:17 Temperature 97.9 F Pulse Rate 89 Respiratory 18 Rate Blood Pressure Blood Pressure 119/89 [Left] O2 Sat by Pulse 97 Oximetry <ROSE MARIE MANRIQUE - Last Filed: 11/15/19 10:43> Vital Signs 11/14/19 20:19 Temperature 98.1 F Pulse Rate 93 H Respiratory 18 Rate Blood Pressure 115/84 O2 Sat by Pulse 97 Oximetry <KEYSHAWN MOREIRA - Last Filed: 11/15/19 16:09> ED Medical Decision Making - Lab Data Result diagrams: 11/14/19 20:29 11/14/19 20:29 <ROSE MARIE MANRIQUE - Last Filed: 11/15/19 10:43> - Lab Data Result diagrams: 11/14/19 20:29 11/14/19 20:29 - Medical Decision Making This patient presents to the emergency department with a complaint of both suicidal and homicidal ideations. For this reason he has been made a 1013. Labs have been unremarkable including CBC, metabolic panel, urine drug screen, blood alcohol level and urinalysis. The patient complained of some chronic left foot pain. An x-ray was done that came back showing a dorsal lateral dislocation of the second toe at the MTP joint. This is not the area of the patient's discomfort and he has no tenderness to palpation of the toe itself. His pain is more to the ball of the foot but there is no obvious abnormality or deformity in this region on x-ray. I attempted to see if I could manually reduce this dislocation without success, and they patient did not want me to make any further attempts. The patient is neurovascularly intact and this appears to be a chronic dislocation since it has been going on for longer than the patient can remember. When asked how long his toe has been this way the patient responds with "a while." He will be placed on crutches so he can be nonweightbearing to this left foot and he has been given referrals for podiatry for when he is done with his psychiatric treatment. <SHEAR,KEYSHAWN S - Last Filed: 11/15/19 16:09> Critical care attestation.: If time is entered above; I have spent that time in minutes in the direct care of this critically ill patient, excluding procedure time. <MANRIQUEROSE MARIE - Last Filed: 11/15/19 10:43> Critical Care Time: No Critical care attestation.: If time is entered above; I have spent that time in minutes in the direct care of this critically ill patient, excluding procedure time. <HARISHKEYSHAWN Barrera - Last Filed: 11/15/19 16:09> ED Disposition Is pt being admited?: No Does the pt Need Aspirin: No <HILARIAROSE MARIE - Last Filed: 11/15/19 10:43> Is pt being admited?: No Time of Disposition: 00:44 <KEYSHAWN MOREIRA - Last Filed: 11/15/19 16:09> Clinical Impression: Suicidal ideations, Left foot pain Disposition: TO HOME OR SELFCARE Condition: Stable Instructions: Arthralgia (ED) Additional Instructions: I have given you a referral for 2 different podiatrists to follow-up regarding your left foot pain as soon as you are able to do so. Until that time, use the crutches to be nonweightbearing to that left foot. Referrals: PRIMARY CARE, [Primary Care Provider] - 3-5 Days PHYLICIA CA DPM [Staff Physician] - 3-5 Days MONTEZ CULLEN MD [Staff Physician] - 3-5 Days
[2019-11-14] MEDS ORDERED: ACETAMINOPHEN 325 MG TAB PO ONE (22:42)
[2019-11-14] MEDS ORDERED: ACETAMINOPHEN 325 MG TAB ONE (22:48)
--- NOTE | 2019-11-14 23:08 | XRay Report ---
LEFT FOOT 3 VIEW(S) INDICATION / CLINICAL INFORMATION: left foot pain COMPARISON: Contralateral right foot dated 04/06/19 FINDINGS: BONES / JOINT(S): There is dorsolateral dislocation of the 2nd toe at the MTP joint with overriding o f the proximal phalanx relative to the distal metatarsal. A similar injury was noted in the right ruby t on the prior study. Moderately advanced hallux valgus deformity. No significant arthritis. SOFT TISSUES: No significant abnormality. ADDITIONAL FINDINGS: None. Signer Name: Mima Dickson MD Signed: 11/14/2019 11:04 PM Workstation Name: [id number]
[2019-11-14] MEDS ORDERED: IBUPROFEN 600 MG TAB PO ONE (23:11)
[2019-11-15 08:19] VITALS: BP 119/89
== END 2019-11-15 10:59 | disposition home or self-care (01) ==
LOC: ED 20:02
DX: R45.851 Suicidal ideations (principal); M79.672 Pain in left foot; F31.9 Bipolar disorder, unspecified; Z88.6 Allergy status to analgesic agent
CPT/HCPCS: 36415; 80048; 80307; 80320; 81001; 85025; G0480